=== PATIENT | male | born 1980 | race Caucasian/White ===

== ENCOUNTER 2022-12-25 06:54 | Day surgery (SDC) | payer OTHER ==
[~2022-12-25] VITALS: Ht 175.3 cm; Wt 81.6 kg
[~2022-12-25 06:54] MED LIST: HUMLOG; LANTUS
[2022-12-25] MEDS ORDERED: TRAMADOL HCL50 MG PO (12:37)
== END 2022-12-25 14:45 | disposition home or self-care (01) ==
LOC: CIR.AMB 06:54
PROVIDERS: ATTEND Surgery
DX: N52.8 Other male erectile dysfunction (principal); N48.6 Induration penis plastica; Z20.822 Contact with and (suspected) exposure to COVID-19; Z87.891 Personal history of nicotine dependence; E10.40 Type 1 diabetes mellitus with diabetic neuropathy, unspecified; Z79.4 Long term (current) use of insulin
CPT/HCPCS: 54405; 54112; 54360; C1813